=== PATIENT | female | born 1990 | race Caucasian/White ===

== ENCOUNTER 2020-12-13 15:06 | Emergency (ER) | payer OTHER ==
[2020-12-13 16:04] LABS: BILIRUBIN NEGATIVE (NEGATIVE); BLOOD 2+ Ery/uL (NEGATIVE); CLARITY HAZY (CLEAR); COLOR YELLOW (YELLOW); GLUCOSE (U) NORMAL (NORMAL); LEUKOCYTES NEGATIVE Leu/uL (NEGATIVE); NITRITE NEGATIVE (NEGATIVE); PROTEIN NEGATIVE (NEGATIVE); SPECIFIC GRAVITY 1.015 (1.001-1.030); UROBILINOGEN 0.2 mg/dL (0.2-1.0); pH 6.5 (5.0-9.0)
[2020-12-13 16:15] LABS: SQUAMOUS EPITHELIAL CELLS RARE; URINARY WBC RARE
[2021-02-08] MEDS ORDERED: THERA-D50 MCG PO (13:43)
[2021-02-08] MEDS ORDERED: VIT E PO (13:44)
[2021-02-08] MEDS ORDERED: FOLIC ACID1 MG PO (13:45)
[2021-02-08] MEDS ORDERED: METFORMIN HCL500 MG PO (13:46)
== END 2020-12-13 18:50 | disposition home or self-care (01) ==
LOC: FER 15:06
PROVIDERS: Emergency Medicine
DX: R30.0 Dysuria (principal); R11.0 Nausea; T40.2X5A Adverse effect of other opioids, initial encounter; S20.314A Abrasion of middle front wall of thorax, initial encounter; S30.811A Abrasion of abdominal wall, initial encounter; T14.8XXA Other injury of unspecified body region, initial encounter; V49.9XXA Car occupant (driver) (passenger) injured in unspecified traffic accident, initial encounter; Y92.410 Unspecified street and highway as the place of occurrence of the external cause
CPT/HCPCS: 81001; 99284

== ENCOUNTER → 2021-02-16 | Day surgery (SDC) | payer OTHER ==
[~2021-02-16] VITALS: Ht 165.1 cm; Wt 68.0 kg
[~2021-02-16] MED LIST: FOLIC ACID1 MG PO; METFORMIN HCL500 MG PO; THERA-D50 MCG PO; VIT E PO
[2021-02-16 07:27] LABS: HCG (URINE) SCREEN NEGATIVE (NEGATIVE)
[2021-02-16 07:52] LABS: HCT 41.2 % (37.0-47.0); HGB 13.7 g/dl (12.5-16.0); MCH 29.5 pg (25.0-31.0); MCHC 33.3 g/dL (32.0-36.0); MCV 88.8 fL (78.0-100.0); MPV 10.6 fL (6.0-9.5); RBC 4.64 M/uL (4.20-5.40); RDW 12.5 % (11.5-14.0)
== END | disposition home or self-care (01) ==
LOC: FAS 07:06
PROVIDERS: Specialist
DX: R10.2 Pelvic and perineal pain (principal); G89.4 Chronic pain syndrome; F41.9 Anxiety disorder, unspecified; F43.10 Post-traumatic stress disorder, unspecified; Z87.891 Personal history of nicotine dependence
CPT/HCPCS: 36415; 84702; 84703; 86850; 86900; 86901; J0690; J1100; J1170; J1885; J2250; J2405; J2704; J2710; J3010; J7120; Q9968